=== PATIENT | male | born 1975 | race Caucasian/White ===

== ENCOUNTER 2024-11-16 08:55 | Emergency (ER) | payer MEDICAID, SELFPAY ==
[2024-11-16 09:01] VITALS: BP 150/102; PULSE 89; RESP 16; TEMP 36.7; O2SAT 97
[2024-11-16 09:08] VITALS: BP 149/109
--- NOTE | 2024-11-16 09:26 | ED_ITS ---
HPI - Extremity Problem General Chief complaint: Extremity Problem,Nontraumatic Stated complaint: left leg swollen Time Seen by Provider: 11/16/24 09:27 Source: patient, RN notes reviewed and old records reviewed Mode of arrival: ambulatory Limitations: no limitations History of Present Illness HPI Narrative: 49-year-old male with no past medical history presents with left lower leg swelling that has been increasing over the last month. Denies any recent travel. Reports increasing pain Related Data Home Medications ?Medication ?Instructions ?Recorded ?Confirmed ?Last Taken ?Type No Home Medications 11/16/24 Unknown H istory Allergies Allergy/AdvReac Type Severity Reaction Status Date / Time No Known Allergies Allergy Verified 11/16/24 09:20 Review of Systems 2 Review of Systems: All systems reviewed & are unremarkable except as noted in HPI and below Constitutional: Constitutional: Reports no additional constitutional complaints Cardiovascular: Cardiovascular: Reports no additional cardiovascular complaints, Denies chest pain and Denies dyspnea Respiratory: Respiratory: Reports no additional respiratory complaints, Denies chest congestion, Denies cough and Denies dyspnea Musculoskeletal: Musculoskeletal: Reports as per HPI, Reports numbness and Reports tingling Integumentary/Breasts: Skin/Breast: Reports system reviewed and no additional complaints, except as docu PMFSH Comments At the time of my signature, I reviewed and agree with the nursing past medical, surgical, social, and family history. There is no relevant family history pertinent to the patient complaint. Exam 2 Const: General: cooperative, no acute distress, well developed, alert, uncomfortable, well nourished and overweight Nutritional Appearance: well nourished Orientation/consciousness: patient oriented x3 Limitations: no limitations HENMT: Head: normal to inspection Eyes: General: appearance normal, both eyes and all related structures A lignment and Position: alignment normal Neck: Neck: normal visual inspection, full ROM, no lymphadenopathy and no meningeal signs Chest: Chest palpation & inspection: normal inspection of the chest Resp: Effort & Inspection: normal respiratory effort and able to speak in complete sentences Cardio: Rate: regular rate Peripheral pulses: other (+1 pedal pulse left) Skin: General skin exam: normal color and no rashes or lesions noted Neuro: General: patient oriented x3, No gait normal, moves all extremities and no meningeal signs Cognition (Neuro): normal cognition Speech: normal speech Extrem: General: normal to inspection, full ROM, capillary refill normal and normal gait Left lower extremity: lower leg Details: tenderness and pitting edema; no ecchymosis, no deformity and no unusual warmth; abnormal capillary refill Upper/lower leg/hip images: 1. 48cm right 2. 53cm swelling to knee left Psych: Appearance: grossly normal and well kempt Mental Status: mental status grossly normal Speech and movement: Normal speech and movement present and Clear speech present Affect: normal affect Attitude: cooperative Course Course Level of Care: Express Care Visit Vital Signs Vital signs: Vital Signs Temperature 98.1 F 11/16/24 09:01 Pulse Rate 89 11/16/24 09:01 Respiratory Rate 16 11/16/24 09:01 Blood Pressure 150/102 H 11/16/24 09:01 Pulse Oximetry 97 11/16/24 09:01 Oxygen Delivery Room Air 11/16/24 09:01 Temperature 98.1 F 11/16/24 09:01 Pulse Rate 89 11/16/24 09:01 Respiratory Rate 16 11/16/24 09:01 Blood Pressure 149/109 H 11/16/24 09:08 Pulse Oximetry 97 11/16/24 09:01 Oxygen Delivery Room Air 11/16/24 09:01 Reviewed Transfer Transfered to: [facility] (per patient request) Transportation: Other (pov) Transfer rationale: Patient with significant swelling left lower extremity, sending to rule out DVT Accepting physician: Dr. Garner, spoke with Amanda [facility] - Extremity (Nontraumatic) [facility] Narrative Medical decision making narrative: Patient with significant swelling to the left lower extremity. No medical history increasing over 1 month. Sending patient for higher level of care Transfer instructions reviewed with patient go directly to the ER. All questions have been answered, and the patient deny any further questions Some parts of this dictation were generated by voice recognition software and may contain typographical and/or grammatical inaccuracies. Differential Diagnosis Differential diagnosis: Likely cellulitis and other (DVT, blood clots, heart failure, vascular insufficiency) Critical Care Time Critical Care Time Critical Care Time: No Discharge Plan Discharge Clinical Impression: Left leg swelling Patient Disposition: Acute Care Hospital Condition: Stable Patient Language: Croatian Prescriptions: No Action No Home Medications Follow-up/Referrals: PHYSICIAN,PROPERTY ASSESSMENT MONITOR [Primary Care Provider, Internal Medicine]
== END 2024-11-16 09:42 | disposition short-term general hospital (02) ==
PROVIDERS: Emergency Provider Nurse Practitioner
DX: M79.89 Other specified soft tissue disorders (principal)
CPT/HCPCS: 99202; G0463